=== PATIENT | female | born 1950 | race Caucasian/White ===

== ENCOUNTER 2022-05-03 08:07 | Observation (INO) ==
--- NOTE | 2022-04-22 09:06 | PAT Medication Instructions ---
Medication Instructions Date of Service April 22, 2022 Home Medications levothyroxine 88 mcg tablet (Synthroid) 88 mcg PO QAM lisinopril 20 mg tablet 20 mg PO HS rosuvastatin 10 mg tablet (Crestor) 10 mg PO HS Collagen Powder 1 dose PO QAM STOP taking 2 weeks before surgery (or as soon as possible if surgery is within 2 weeks) Collagen Powder 1 dose PO QAM Take morning of surgery With a small sip of water, OTHERWISE NOTHING TO EAT OR DRINK AFTER MIDNIGHT: levothyroxine 88 mcg tablet (Synthroid) 88 mcg PO QAM Take evening before surgery lisinopril 20 mg tablet 20 mg PO HS rosuvastatin 10 mg tablet (Crestor) 10 mg PO HS Other Notes If you have any questions please call us at [phone] or [phone] or [phone] or [phone]
--- NOTE | 2022-04-23 14:26 | Anesthesiology Consultation ---
Date of Service April 23, 2022 Assessment & Plan (1) Encounter for pre-operative examination: - COVID screening: Per assessment on 04/23: No known COVID-19 positive contacts or current COVID-19 related symptoms. Travel screen negative. Patient vaccinated. At surgeon discretion if preop Covid testing being done. - Outpatient joint assessment: Pt currently scheduled for inpatient pathway. If surgeon requests review for outpatient joint pathway, patient is not recommended candidate for outpatient joint program from anesthesia standpoint. - Cardiology office visit (02/11/22): "Patient presents today on referral for evaluation of ongoing sensation of palpitations.. Discussed atrial ectopy and arrhythmias in detail.. Noted relatively benign history of atrial ectopy with indications for symptom relief treatment only.. Would reduce thyroid replacement 88 mcg p.o. q. day with prescription provided.. Recent electrolytes and magnesium normal.. Discussed potential use of lowdose betablocker to aid in symptoms if persistent after adjustments in therapies.. Also discussed occult SVT observed on event monitor. Noted with methods of treatment if sustained events occur" > Follow-up 6 months recommended. Chart Review Chart Review: Acceptable Risk for Surgery and Patient seen in Pre Admission Testing Teaching & Discussion Pre-Anesthesia Teaching/Discussion Notes: Instructed NPO after midnight before surgery,except medications with 15 cc of water. Medication instructions provided according to the PAT guidelines. History Surgery Operation Date: 04/30/22 10:40 Proposed Procedures p Right Total Knee Arthroplasty - Robert Pina MD Height/Weight Height: 5 ft 1 in Weight: 129.3 kg Allergies Allergy/AdvReac Type Severity Reaction Status Date / Time Iodinated Contrast Media Allergy Severe Diffuse Verified 04/23/22 14:49 hives morphine AdvReac Intermediate N/V Verified 04/23/22 14:34 pravastatin AdvReac Leg pain Verified 04/23/22 14:49 (per [facility] records) Medications Home Medications Medication Instructions Recorded Confirmed Last Taken levothyroxine 88 mcg tablet 88 mcg PO QAM 04/11/22 04/18/22 Unknown (Synthroid) lisinopril 20 mg tablet 20 mg PO HS 04/11/22 04/18/22 Unknown rosuvastatin 10 mg tablet (Crestor) 10 mg PO HS 04/11/22 04/18/22 Unknown Collagen Powder 1 dose PO QAM 04/18/22 04/18/22 Unknown 3-in-1 Commode #1 ea 04/22/22 Unknown Past Medical History Medical History CKD (chronic kidney disease) Stage III Degenerative arthritis of knee, bilateral High cholesterol History of COVID-19 11/17/21 > symptoms resolved History of depression History of kidney stones Hypertension Hypothyroidism Morbid obesity Palpitations Per cardiology visit 01/2022, "Pattern consistent with sensed atrial ectopy with moderate to frequent atrial ectopy observed on event monitor, and on EKG.. Also discussed occult SVT observed on event monitor. Noted with methods of treatment if sustained events occur" - recommended reduction in thyroid replacement therapy, t/c beta gerry if persistent symptoms Prediabetes Exercise / Class Metabolic Activity III < 4 Walking/Shop/Light housework (one FS (no CP, + SOB)) Past Family History Family History Other Diabetes Heart disease No family history of adverse response to anesthesia Stroke Past Surgical History Surgical History H/O tubal ligation History of dilatation and curettage History of repair of rotator cuff Right History of tooth extraction Past Anesthesia History No Hx of Anesthesia Complications and No Family Hx of Anesthesia Complications History of PONV No Hx of PONV and No Hx of Motion Sickness Social History Smoking Status: Former smoker tobacco type: cigarettes Do You Dip or Chew Tobacco: No Smoking End Date: Quit around age 32 Hx Alcohol Use: Yes alcohol intake frequency: holidays/special occasions only Hx Substance Use: No substance use type: does not use Review of Systems Hx palpitations- controlled. Patient denies chest pain, shortness of breath, fever, chills, cough, wheezing. Physical Exam Vital Signs VITALS BP 112/66 P 70 TEMP 98.9 SP02 96%RA RESP 18 PHYSICAL Full cervical extension range of motion. Full TMJ range of motion. TMD 3 finger breaths Mallampati Score 1 Dentition: intact, + crown Lungs: clear throughout to auscultation Cardiac: regular rate and rhythm, no murmurs noted Spine: normal Carotid arteries: negative bruit Extremities: no edema Lab Results Anesthesia Preop Results Results Anesthesia Widget: WBC 5.88 K/ul (4.8-10.8) 04/23/22 Hgb 12.6 g/dl (12.0-16.0) 04/23/22 Hct 38.0 % (34.1-44.9) 04/23/22 Plt 310 K/uL (130-400) 04/23/22 Na 142 mmol/L (136-145) 04/23/22 K 4.1 mmol/L (3.5-5.1) 04/23/22 Cl 109 mmol/L (98-107) H 04/23/22 CO2 29 mmol/L (21-32) 04/23/22 BUN 25 mg/dl (6-23) H 04/23/22 Creat 1.09 mg/dl (0.6-1.2) 04/23/22 Glucose Level 141 mg/dl (70-99(Fasting)) H 04/23/22 PT 10.7 Seconds (9.0-12.0) 04/23/22 PTT 24.8 Seconds (21.0-31.0) 04/23/22 INR 1.0 (0.9-1.1) 04/23/22 Blood Type A Positive 04/23/22 Antibody Screen NEGATIVE 04/23/22 Testing Electrocardiogram Date: 01/28/22 SR and PSVCs at 79bpm. Possible LAE. RSR' or QR pattern in suggests RVCD. TWI less evident in anterior leads compared to 11/30/18 per commissioned security officer review- Echo done 02/08/19. Chest X-Ray Date: 04/23/22 Findings: + NAD Echocardiogram Date: 02/18/19 LVEF 60-64%. Mildly increased concentric LV wall thickness. No regional motion abnormality. Grade 1 diastolic dysfunction. Mild AV sclerosis. COVID-19 Risk Screen Screening Information COVID-19 Screen Date: 04/23/22 Exposure 21 Days Family/Household +COVID Last 21 Days: No Exposure 10 Days Any COVID Exposure Last 10 Days: No Symptoms Last 10 Days Experienced COVID Sx Last 10 Days: No + COVID 0-90 Days COVID + in Last 0-90 Days: No
[~2022-05-03 08:07] MED LIST: ACETAMINOPHEN 500 MG TAB PO SCH; BUPIVACAINE 0.5 % 5 MG/1 ML PF 10ML VIAL ONE; BUPIVACAINE LIPOSOME/PF 266 MG, BUPIVACAINE/EPINEPHRINE 50 ML, SODIUM CHLORIDE 0.9% 30 ... INFIL SCH; CeleBREX 200 MG CAP PO SCH; EPINEPHrine INJ 1 MG/ML AMP ONE; FAMOTIDINE 20 MG TAB PO SCH; LR 15ML/HR IV SCH; LR 500ML BOLUS, THEN 15ML/HR IV SCH; LR 60ML/HR IV SCH; METOCLOPRAMIDE HCL 10 MG TABLET PO SCH; ROPIVACAINE 0.5% 5 MG/ML 30 ML VIAL ONE; Scopolamine 1 MG TDSY TD SCH; Scopolamine CHECK PATCH PLACEMENT SCH; TRANEXAMIC ACID 1,000 MG **IV Intra-op IV SCH; ceFAZolin 2000MG 2,000 MG/15 ML SYR IV SCH
--- NOTE | 2022-05-03 08:41 | History & Physical Bridge Note ---
Date of Service May 03, 2022 History & Physical Bridge Note I have examined the patient, reviewed the History & Physical and in the interval since the performance of the History & Physical I have noted the following changes of clinical significance: no changes noted
[2022-05-03] MEDS ORDERED: KETAMINE 50 MG/5 ML SYRINGE ONE (09:33)
[2022-05-03] MEDS ORDERED: MIDAZOLAM HCL 1 MG/ML 2ML VIAL ONE (09:33)
[2022-05-03] MEDS ORDERED: PROPOFOL IV EMULSION 10 MG/ML 20 ML VIAL IV ONE ×2 (09:34→12:11)
[2022-05-03] MEDS ORDERED: GLYCOPYRROLATE 0.2 MG/ML VIAL ONE (09:34)
[2022-05-03] MEDS ORDERED: LIDOCAINE 2% MPF LOCAL 5 ML VIAL INFIL ONE (09:34)
[2022-05-03] MEDS ORDERED: ONDANSETRON INJ 2 MG/ML 2 ML VIAL ONE (09:34)
[2022-05-03] MEDS ORDERED: fentaNYL citrate 100 MCG/2 ML VIAL ONE (10:09)
[2022-05-03] MEDS ORDERED: BUPIVACAINE/EPINEPHRINE 0.25% 1:200,000 30 ML VIAL ONE (10:38)
[2022-05-03] MEDS ORDERED: SODIUM CHLORIDE 0.9% PF 50 ML VIAL ONE (10:38)
[2022-05-03] MEDS ORDERED: BUPIVACAINE LIPOSOME 1.3% 266 MG/20 ML VIAL ONE (10:40)
[2022-05-03] MEDS ORDERED: SODIUM CHLORIDE 0.9% INJ 10 ML VIAL ONE (10:58)
[2022-05-03] MEDS ORDERED: PHENYLEPHRINE HCL 10 MG/ML VIAL ONE (10:58)
[2022-05-03] MEDS ORDERED: ePHEDrine sulfate 50 MG/ML AMP ONE (10:58)
[2022-05-03] MEDS ORDERED: ATROPINE SULFATE 0.1 MG/ML 10ML SYR IV PRN (12:38)
[2022-05-03] MEDS ORDERED: ePHEDrine sulfate 50 MG/ML AMP IV PRN (12:38)
--- NOTE | 2022-05-03 12:53 | Operative Report ---
PG Post Operative Report Pre & Post Diagnosis Operation Date: 04/30/22 10:40 <No data on this case meets the specified criteria> Operation Date: 05/03/22 10:40 Pre-Op Diagnosis: Right knee degenerative joint disease. Post-Op Diagnosis: Right knee degenerative joint disease. I identified the patient and participated in the time-out.: Yes Procedure Operation Date: 04/30/22 10:40 <No data on this case meets the specified criteria> Operation Date: 05/03/22 10:40 Actual Procedures p Right Total Knee Arthroplasty(Right) - Robert Pina MD Surgeon Robert Pina MD Casting Machine Set Up Operator Rambo Diaz PA-C Estimated Blood Loss 50 Findings Consistent with Post-Op Diagnosis Operative findings real advanced right knee tricompartment DJD. She had extensive grade 4 [id number] disease in all 3 compartments. She had chronic ACL deficiency. Osteophytes in all 3 compartments. Very stiff knee preoperatively. Fluids 1300 cc Specimens Right knee sent for pathology Drains None Anesthesia Type Spinal MAC Complications none Disposition Accompanied Patient To Recovery: No Indications Patient is a 71-year-old female with underlying morbid obesity with a BMI of 53 whose had a long history of bilateral knee pain discomfort. She been through extensive conservative treatment became less successful over time. Pain is become debilitating limiting her activities. She elected proceed with right total knee arthroplasty. Description of Procedure Operative implants consist of: 1 Biomet Vanguard size 67.5 right posterior stabilized femoral component. 2. Biomet size 67 tibial tray. 3. 10 mm posterior stabilized polyethylene insert. 4. 28 x 8 all Paller patella. The patient was taken the operating, identified, placed on the operating table supine position protectors were properly padded. IV antibiotics tried by aneness thesia team. Spinal anesthetic been implemented holding area along with an abductor canal block. Rosas catheter was placed in a sterile fashion. Right thigh high tourniquet was placed in the right lower extremities then prepped and draped in usual sterile fashion. The right leg was elevated exsanguinated with use of an Esmarch in terms playset 300 mmHg. An anterior approach to the right knee was then performed to longitudinal incision centered over the patella. Sharp dissection Through subcutaneous tissue down the extensor mechanism. A medial parapatellar arthrotomy incision was made. Some subperiosteal dissection was carried out medially but the fat pad was dissected from Neath patella tendon. Lateral patellofemoral ligament was released. Patella subluxated laterally and the knee was flexed. The osteophytes were taken off distal femur. The ACL was absent. The PCL was released from distal femur. I attempted to subluxate the tibia anteriorly but was difficult to do and we could not get it out enough to cut the tibia. Therefore elected to cut the distal femur first. Distal femur stem with a sharp drill. Intramedullary canal was suction. Right 5 degree valgus cutting guide was placed. Distal femoral cutting block was pinned in place. Distal femoral cut was made to take an additional 3 mm bone off distal femur. This gave us enough room to subluxated tibia anteriorly. External tibial alignment jig was then placed in the interface the tibia and adjusted 14 mm medially. Proximal tibial cut was made removed by millimeter bone from most deficient aspect medial tibial plateau. Some osteophytes were taken off medial and posterior medially. Tibia sized to size 67. Attention drawn back to the femur. The femur was then sized to a size 67.5. Downsized this just slightly. The AP cutting block was pinned parallel to the epicondylar axis which was 3 degrees of external rotation. Anterior cut, anterior chamfer, posterior cut, posterior chamfer cuts were made. The box cutting guide was placed in just slight lateral and the box cut was made. The knee was flexed. The remnants of the medial and lateral menisci were excised. The osteophytes taken off the posterior aspect the femur. A trial femoral component was placed. Tibial tray was pinned in maximum external rotation and the drill and stem punch used to create defect in proximal tibia for the tibial tray. The knee was then trialed and the 10 mm insert fit most appropriately. Attention drawn the patella. The patella was cleaned of all soft tissues. Patella thickness measured 21 mm in thickness cut down to 13. Was sized to a size 28 patella. The lug holes were drilled for the 28 patella. The lateral osteophyte was removed. Patella button was placed. Knee was taken through range of motion patella tracked nicely with no thumbs test. Attention drawn to place the permanent components. Nupathe all trial components were removed. Bone plug was placed in the distal femur limit blood loss. Double batch Palacos G cement was mixed. A BiomPubCoderguard size 67.5 right posterior stabilized femoral component, a size 67 tibial tray, 10 mm posterior stabilized polyethylene insert, and a 28 x 8 all Paller patella then cemented in place. Knee was brought out in full extension total cement hardened. Final cement check was then performed. Pericapsular tissues were injected with total of 100 cc of combination of 23 of Exparel, 30 cc normal saline, 50 cc of quarter percent Marcaine with epinephrine. Patient did receive 1 g tranexamic acid. The tourniquet was then let down for final turn time of 63 minutes. Hemostasis assured use electrocautery. Extensor mechanism closed with combination 1 PDS suture #1 Vicryl suture in [id number] fashion. Extensor mechanism checked found to be intact the subcutaneous tissue then closed with 2 Dexon suture in a buried interrupted fashion skin was closed skin charlie. Leg was then cleaned and dried and sterile dressed with Xeroform, 4 x 4's, sterile cast padding, Roman bandage were applied. Patient then transferred to the recovery room in stable condition. Patient tolerated procedure well and there were no complications. Rambo Diaz, my physician assistant financial accountant, was present for the entire procedure. His assistance was essential and required for appropriate patient positioning, prepping and draping, surgical exposure, performing the technical details of the operation, placement the implants, closure of the wound, and placement of the sterile bandage. I attest to the content of the Intraoperative Record and any orders documented therein. Any exceptions are noted below.
[2022-05-03] MEDS ORDERED: HYDROmorphone INJ 1 MG/ML SYRINGE ONE ×2 (13:00→13:33)
--- NOTE | 2022-05-03 13:32 | XRay Report ---
XR knee RT 1 or 2V routine CLINICAL HISTORY: Surgical Post Op COMPARISON: Knee radiographs April 11, 2022. FINDINGS: Alignment of the total right knee arthroplasty is anatomic. No periprosthetic fracture or unexpected radiopaque foreign body. There are skin charlie. IMPRESSION: Expected findings following total right knee arthroplasty. ACT 112: Negative or not required by law. Electronically signed by: Huy Calhoun M.D. 05/03/2022 1:31 PM
--- NOTE | 2022-05-03 14:18 | Anesthesiology Progress Note ---
Date of Service May 03, 2022 Anesthesia Post Procedure Vital Signs Vital Signs: Temp Pulse Resp BP Pulse Ox O2 Del Method O2 Flow Rate 05/03/22 14:14 36.4 C L 89 18 133/66 94 Room Air 05/03/22 13:35 36.8 C 99 H 21 169/88 H 95 Room Air 05/03/22 13:25 36.8 C 100 H 19 151/87 H 95 Nasal Cannula 2 05/03/22 13:15 104 H 23 165/81 H 95 Room Air 05/03/22 13:05 105 H 17 171/77 H 97 Nasal Cannula 2 05/03/22 13:45 36.8 C 101 H 17 148/88 H 94 Room Air 05/03/22 12:55 111 H 14 144/79 H 94 Nasal Cannula 3 05/03/22 12:48 36.5 C 96 H 16 120/57 L 98 Nasal Cannula 4 05/03/22 08:34 36.9 C 84 20 132/85 95 Room Air Pain Intensity Right Knee: Pain Intensity: 2 Transfer of Care Handoff Completed per policy Notes Mental Status: alert / awake / arousable Patient Amnestic to Procedure: Yes Nausea / Vomiting: adequately controlled Pain: adequately controlled Airway Patency, RR, SpO2: stable & adequate BP & HR: stable & adequate Hydration State: stable & adequate Neuraxial Anesthesia: was administered and sensory block is resolving Anesthetic Complications: no major complications apparent
[2022-05-03] MEDS ORDERED: ONDANSETRON INJ 2 MG/ML 2 ML VIAL IV PRN (14:35)
[2022-05-03] MEDS ORDERED: bisacodyL 10 MG SUPP PR PRN (14:35)
[2022-05-03] MEDS ORDERED: METOCLOPRAMIDE HCL INJ 5 MG/ML 2 ML VIAL IV PRN (14:35)
[2022-05-03] MEDS ORDERED: ALUMINUM/MAGNESIUM SUSP 30 ML UDC PO PRN (14:35)
[2022-05-03] MEDS ORDERED: MAGNESIUM HYDROXIDE SUSP 30 ML UDC PO PRN (14:35)
[2022-05-03] MEDS ORDERED: HYDROmorphone INJ 1 MG/ML SYRINGE IV PRN (14:35)
[2022-05-03] MEDS ORDERED: NALOXONE HCL 0.4 MG/1 ML VIAL/CARP IV PRN (14:35)
[2022-05-03] MEDS: SODIUM CHLORIDE 0.9% 1000ML 1,000 ML IV SCH (15:31)
[2022-05-03] MEDS: ACETAMINOPHEN 500 MG TAB PO SCH ×2 (15:35→23:09)
[2022-05-03] MEDS: KETOROLAC TROMETHAMINE 15 MG/ML VIAL IV SCH ×2 (15:36→20:00)
[2022-05-03] MEDS: Scopolamine CHECK PATCH PLACEMENT SCH ×2 (15:38→23:09)
[2022-05-03] MEDS: ASCORBIC ACID 500 MG TAB PO SCH (16:56)
[2022-05-03] MEDS ORDERED: TRANEXAMIC ACID / 0.7% NACL 1,000 MG/100 ML BAG IV SCH (18:45)
[2022-05-03] MEDS: oxyCODONE HCL IR 5 MG TAB (IMMEDIATE RELEASE) PO PRN (19:13)
[2022-05-03] MEDS: ceFAZolin 2000MG 2,000 MG/15 ML SYR IV SCH (20:00)
[2022-05-03] MEDS: ASPIRIN 81 MG ECTAB PO SCH (20:01)
[2022-05-03] MEDS: DOCUSATE SODIUM 100 MG CAP PO SCH (20:01)
[2022-05-03] MEDS ORDERED: SENNA 8.6 MG TAB PO SCH (21:00)
[2022-05-03] MEDS ORDERED: ROSUVASTATIN CALCIUM 10 MG TAB PO SCH (21:00)
[2022-05-03] MEDS ORDERED: lisinopril 20 MG TAB PO SCH (21:00)
[2022-05-04] MEDS: SODIUM CHLORIDE 0.9% 1000ML 1,000 ML IV SCH (01:18)
[2022-05-04] MEDS: oxyCODONE HCL IR 5 MG TAB (IMMEDIATE RELEASE) PO PRN ×2 (02:11→11:05)
[2022-05-04] MEDS: ceFAZolin 2000MG 2,000 MG/15 ML SYR IV SCH (02:11)
[2022-05-04] MEDS: KETOROLAC TROMETHAMINE 15 MG/ML VIAL IV SCH ×2 (02:12→09:15)
[2022-05-04] MEDS: ACETAMINOPHEN 500 MG TAB PO SCH (05:31)
[2022-05-04 06:28] LABS: Hematocrit (blood only) 32.3 % (34.1-44.9); Hemoglobin 10.6 g/dl (12.0-16.0); Mean Corpuscular Hemoglobin 30.2 pg (25.0-34.0); Mean Corpuscular Hgb Conc 32.8 g/dL (32.0-36.0); Mean Platelet Volume 9.5 fL (9.4-12.3); Platelet Count 267 K/uL (130-400); RDW Coefficient of Variation 13.2 % (11.5-14.5); RDW Standard Deviation 43.9 fL (36.4-46.3); Red Blood Count 3.51 M/uL (3.93-5.22); White Blood Count 7.63 K/ul (4.8-10.8)
[2022-05-04 06:53] LABS: BUN Creatinine Ratio 20.5 (10-20); Calcium 8.8 mg/dl (8.5-10.1); Creatinine Clr Calc Pharmacy 52.6 ml/min; Est GFR (African American) 49.9 ml/min; Potassium 3.9 mmol/L (3.5-5.1)
[2022-05-04] MEDS ORDERED: dexAMETHasone 10 MG in SYRINGE 0 ML IV SCH (08:00)
--- NOTE | 2022-05-04 08:46 | Progress Notes ---
DATE OF SERVICE: 05/04/2022 SUBJECTIVE: A 71-year-old female postop day 1 from right knee replacement. She is doing quite well. Pain has been very well controlled overnight. Had a good night. She has been up and out of bed to the bathroom, doing well. She is hoping to go home. No chest pain or shortness of breath. Not fee ling dizzy or lightheaded. OBJECTIVE: VITAL SIGNS: Temperature is 37.0. Vital signs stable. PHYSICAL EXAMINATION: GENERAL: Shows a pleasant middle-aged female. She is lying in bed and looks comfortable. LUNGS: Clear to auscultation. HEART: Regular rate and rhythm. ABDOMEN: Soft, nontender, nondistended. EXTREMITIES: Grossly neurovascularly intact except as follows. Examination of the right leg reveals the dressing to be clean, dry, and intact. Leg is well aligned. She can dorsiflex and plantarflex her foot appropriately. She is neurologically intact. LABORATORY DATA: Hemoglobin 10.6. Hematocrit 32.3. Electrolytes are stable. Creatinine just sligh tly on the high side, which is around baseline. ASSESSMENT: A 71-year-old white female postop day 1 from a right knee replacement, doing pretty well . Pain is controlled. She is neurologically intact. She is hoping to go home. PLAN: 1. DVT prophylaxis to include thigh-high TEDs, SCDs, and aspirin twice a day. 2. PT/OT, weightbear as tolerated. Right total knee protocol. 3. Pain control, doing okay with current pain regimen. 4. Elevated creatinine. Likely due to volume status. We will encourage p.o. intake. 5. Disposition: Plan to discharge to home with some home health if she does okay in therapy. Job ID: [id number]
[2022-05-04] MEDS ORDERED: COLLAGEN PO SCH (09:00)
[2022-05-04] MEDS ORDERED: DOCUSATE SODIUM/SENNA 50/8.6MG TAB PO SCH (09:00)
[2022-05-04] MEDS ORDERED: LEVOTHYROXINE SODIUM 88 MCG TABLET PO SCH (09:00)
[2022-05-04] MEDS ORDERED: MULTIVITAMIN TAB PO SCH (09:00)
[2022-05-04] MEDS: Scopolamine CHECK PATCH PLACEMENT SCH (09:15)
[2022-05-04] MEDS: ASPIRIN 81 MG ECTAB PO SCH (09:16)
[2022-05-04] MEDS: DOCUSATE SODIUM 100 MG CAP PO SCH (09:16)
[2022-05-04] MEDS: ASCORBIC ACID 500 MG TAB PO SCH (09:16)
== END 2022-05-04 11:48 | disposition home health service (06) ==
LOC: ASU 08:07 → 3N 08:07
DX: Z68.43 Body mass index [BMI] 50.0-59.9, adult; Z79.890 Hormone replacement therapy; Z87.891 Personal history of nicotine dependence; Z79.899 Other long term (current) drug therapy; Z91.041 Radiographic dye allergy status; Z86.16 Personal history of COVID-19; M17.11 Unilateral primary osteoarthritis, right knee; E66.01 Morbid (severe) obesity due to excess calories; Z79.82 Long term (current) use of aspirin

== ENCOUNTER 2022-08-16 10:12 | Observation (INO) ==
--- NOTE | 2022-08-10 09:50 | History and Physical Report ---
CHIEF COMPLAINT: Left knee pain. HISTORY OF PRESENT ILLNESS: The patient is a 72-year-old female who presents for surgical treatment of her left knee. She has a long history of knee problems that has gradually gotten worse over time. She had a right knee replaced about 3 months ago and has done well from this. She continues to be bothered by left knee pain and discomfort. It has been gradually increasing over the past 10 years. She has been treated extensively with injections and medicines, which became less successful over ti me. She is happy with the right knee and would like to have her left knee fixed as well. PAST MEDICAL HISTORY: Significant for: 1. Heart palpitations now on thyroid medicine and resolved. 2. Hypothyroidism. 3. Elevated cholesterol. 4. Hypertension. 5. Unspecified kidney disease. 6. Obesity with a BMI of 53. PAST SURGICAL HISTORY: Includes: 1. Shoulder surgery. 2. Tubal ligation. 3. Right total knee replacement done on 05/03/2022. ALLERGIES: IVP DYE. CURRENT MEDICATIONS: 1. Lisinopril. 2. Crestor. 3. Synthroid. 4. Supplements. SOCIAL HISTORY: A 72-year-old female. She is . Lives alone. Has a daughter who can help i n her care. Rare alcohol intake. Does not smoke. FAMILY HISTORY: Heart disease, diabetes, brain cancer, throat cancer. REVIEW OF SYSTEMS: Negative for diabetes. No chest pain or shortness of breath. Does have a histor y of heart palpitations in the past, but seems to be resolved now. She is on thyroid replacement. PHYSICAL EXAMINATION: GENERAL: Pleasant middle-aged female. Looks to be in reasonably good health. HEENT: Benign. NECK: Supple. No lymphadenopathy. LUNGS: Clear to auscultation. HEART: Has a regular rate and rhythm. ABDOMEN: Soft, nontender, nondistended. EXTREMITIES: Grossly neurovascularly intact except as follows. Examination of the right knee reveals a well-healed incision. Fairly mild swelling. Range of motion is 0-120. Good straight leg raise. No instability. Examination of the left knee reveals slight va jalyn alignment to her knee. Moderate to large soft tissue envelope. Range of motion is 10 degrees sh ort of full extension to about 110 degrees of flexion. No instability. No pain with hip motion. X-RAYS: X-rays of the left knee are reviewed. It shows advanced left knee DJD. She has got tricomp artment disease with tibial femoral subluxation. ASSESSMENT: A 72-year-old female 3 months out from a right knee replacement with advanced left knee tricompartment degenerative joint disease. She has failed conservative treatment and would like to h ave her left knee replaced. PLAN: We will take her to the operating room and do left total knee replacement. Risks and benefits of this procedure were explained to the patient and include but not limited to DVT, PE, , infec tion, neurological injury, vascular injury, bleeding problem, pain, limited range of motion, stiffnes s, failure to relieve her symptoms, incomplete relief of symptoms, etc. The patient understands and desires to proceed. Informed consent was obtained. As far as discharge plans, she is planning to be discharged to home using [facility] progr [facility]. She does live by herself. I believe her daughter has assisted in her care in the past. Job ID: [id number]
--- NOTE | 2022-08-12 12:04 | Anesthesiology Consultation ---
Date of Service August 12, 2022 Assessment & Plan (1) Encounter for pre-operative examination: Plan - s/p R TKA 05/03/22 SAB L3-L4 2 attempts PNB. - cardiology 02/11/22 [facility]: "...evaluation of ongoing sensation of palpitations. Patient notes sensation of heart fluttering in her chest without specific relationship to activities or position. No sustained tachy palpitations no associated dizziness lightheadedness syncope or near syncope...Discussed atrial ectopy and arrhythmias in detail. Noted relatively benign history of atrial ectopy with indications for symptom relief treatment only. Would reduce thyroid replacement 88 mcg p.o. q.day with prescription provided. Recent electrolytes and magnesium normal. Discussed potential use of low-dose beta-gerry to aid in symptoms if persist after adjustments in therapies. Also discussed occult SVT observed on event monitor. Noted with methods of treatment if sustained events occur..." - Outpatient joint assessment: Patient is currently scheduled for inpatient pathway. If re-evaluated pending system levels during current pandemic/surgeon requests outpatient pathway, patient is not acceptable candidate for outpatient joint program from anesthesia standpoint. - COVID screening: Per mission assessment specialist on 08/12/2022: Travel screen negative, no known COVID-19 positive contacts or current COVID-19 related symptoms in past 2 weeks. To surgeon's discretion if preop COVID testing is needed. Chart Review Chart Review: Acceptable Risk for Surgery and Patient NOT seen in Pre Admission Testing History Surgery Operation Date: 08/16/22 07:00 Proposed Procedures p Left Total Knee Arthroplasty - Robert Pina MD Height/Weight Height: 5 ft 1 in Weight: 128.367 kg Allergies Allergy/AdvReac Type Severity Reaction Status Date / Time Iodinated Contrast Media Allergy Severe Diffuse Verified 08/12/22 11:23 hives morphine AdvReac Intermediate N/V Verified 08/12/22 11:23 pravastatin AdvReac Leg pain Verified 08/12/22 11:23 (per [facility] records) Medications Home Medications Medication Instructions Recorded Confirmed Last Taken levothyroxine 88 mcg tablet 88 mcg PO QAM 04/11/22 08/12/22 05/02/22 05:30 (Synthroid) lisinopril 20 mg tablet 20 mg PO HS 04/11/22 08/12/22 05/01/22 21:00 rosuvastatin 10 mg tablet (Crestor) 10 mg PO HS 04/11/22 08/12/22 05/01/22 21:00 Collagen Powder 1 dose PO QAM 04/18/22 08/12/22 04/29/22 21:00 3-in-1 Commode #1 ea 04/22/22 Unknown acetaminophen 500 mg capsule 1,000 mg PO TID Pain 30 days #180 04/28/22 08/12/22 Unknown caps ketorolac 10 mg tablet 10 mg PO Q8H Pain 5 days #15 tabs 04/28/22 08/12/22 Unknown ondansetron HCl 4 mg tablet 4 mg PO Q6 PRN nausea #20 tabs 04/28/22 08/12/22 Unknown oxycodone 5 mg tablet 5 - 10 mg PO Q6 PRN pain #40 tabs 04/28/22 08/12/22 Unknown sennosides 8.6 mg-docusate sodium 1 tab-cap PO DAILY #14 tabs 04/28/22 08/12/22 Unknown 50 mg tablet (Senokot-S) Amino Acid Synergy 3 tab PO QAM 08/12/22 08/12/22 Unknown Past Medical History Medical History (Updated 08/12/22 @ 11:57 by Brittaney Jaime PA-C) CKD (chronic kidney disease) Stage III Degenerative arthritis of knee, bilateral High cholesterol History of COVID-19 11/17/21 > symptoms resolved History of depression History of kidney stones Hypertension Hypothyroidism Morbid obesity Palpitations Per cardiology visit 01/2022, "Pattern consistent with sensed atrial ectopy with moderate to frequent atrial ectopy observed on event monitor, and on EKG.. Also discussed occult SVT observed on event monitor. Noted with methods of treatment if sustained events occur" - recommended reduction in thyroid replacement therapy, t/c beta gerry if persistent symptoms Prediabetes Past Family History Family History Other Diabetes Heart disease No family history of adverse response to anesthesia Stroke Past Surgical History Surgical History H/O tubal ligation History of dilatation and curettage History of repair of rotator cuff Right History of tooth extraction History of total right knee replacement Social History Smoking Status: Former smoker tobacco type: cigarettes Do You Dip or Chew Tobacco: No Smoking End Date: age 32 Hx Alcohol Use: Yes Alcohol type: wine alcohol intake frequency: holidays/special occasions only Hx Substance Use: No substance use type: does not use Lab Results Anesthesia Preop Results Results Anesthesia Widget: WBC 5.95 K/ul (4.8-10.8) 07/31/22 Hgb 13.3 g/dl (12.0-16.0) 07/31/22 Hct 40.6 % (37.0-47.0) 07/31/22 Plt 339 K/uL (130-400) 07/31/22 Na 141 mmol/L (136-145) 07/31/22 K 4.3 mmol/L (3.5-5.1) 07/31/22 Cl 108 mmol/L (98-107) H 07/31/22 CO2 29 mmol/L (21-32) 07/31/22 BUN 26 mg/dl (6-23) H 07/31/22 Creat 1.07 mg/dl (0.6-1.2) 07/31/22 Glucose Level 107 mg/dl (70-99(Fasting)) H 07/31/22 PT 10.9 Seconds (9.0-12.0) 07/31/22 PTT 26.0 Seconds (21.0-31.0) 07/31/22 INR 1.0 (0.9-1.1) 07/31/22 Blood Type A Positive 07/31/22 Antibody Screen NEGATIVE 07/31/22 Testing Electrocardiogram Date: 01/28/22 Sinus rhythm premature supraventricular complexes, rate 79 bpm Possible LA enlargement RSR' or QR pattern in V1 suggests right ventricular conduction delay Chest X-Ray Date: 04/23/22 No lines and tubes are seen. The cardiomediastinal silhouette is normal. The lungs are clear. No evidence of pleural effusion or pneumothorax. IMPRESSION: No acute chest disease. Echocardiogram Date: 02/08/19 EF 60-64% Normal LV wall motion Grade I diastolic dysfunction Mild cLVH Mild aortic valve sclerosis
[~2022-08-16 10:12] MED LIST changes: -BUPIVACAINE LIPOSOME/PF 266 MG, BUPIVACAINE/EPINEPHRINE 50 ML, SODIUM CHLORIDE 0.9% 30 ... INFIL SCH; +BUPIVACAINE LIPOSOME/PF 266 MG, BUPIVACAINE/EPINEPHRINE 50 ML, SODIUM CHLORIDE 0.9% PF ... INFIL SCH; -EPINEPHrine INJ 1 MG/ML AMP ONE; -LR 15ML/HR IV SCH; -Scopolamine CHECK PATCH PLACEMENT SCH
--- NOTE | 2022-08-16 11:00 | History & Physical Bridge Note ---
Date of Service August 16, 2022 History & Physical Bridge Note I have examined the patient, reviewed the History & Physical and in the interval since the performance of the History & Physical I have noted the following changes of clinical significance: no changes noted
[2022-08-16] MEDS ORDERED: ONDANSETRON INJ 2 MG/ML 2 ML VIAL ONE (11:52)
[2022-08-16] MEDS ORDERED: PROPOFOL IV EMULSION 10 MG/ML 20 ML VIAL IV ONE (11:52)
[2022-08-16] MEDS ORDERED: LIDOCAINE 2% 20 MG/ML 5 ML SYR IV ONE (11:52)
[2022-08-16] MEDS ORDERED: fentaNYL citrate PF 100 MCG/2 ML VIAL ONE (11:53)
[2022-08-16] MEDS ORDERED: MIDAZOLAM HCL 1 MG/ML 2ML VIAL ONE ×2 (11:53→12:51)
[2022-08-16] MEDS ORDERED: FLUMAZENIL 0.1 MG/1 ML 10 ML VIAL IV PRN (12:28)
[2022-08-16] MEDS ORDERED: fentaNYL citrate PF 100 MCG/2 ML VIAL IV PRN ×2 (12:28→12:38)
[2022-08-16] MEDS ORDERED: ONDANSETRON INJ 2 MG/ML 2 ML VIAL IV PRN ×3 (12:28→16:22)
[2022-08-16] MEDS ORDERED: HYDROmorphone INJ 2 MG/ML SYR/VIAL IV PRN ×2 (12:28→12:38)
[2022-08-16] MEDS ORDERED: ePHEDrine sulfate 50 MG/ML AMP IV PRN (12:38)
[2022-08-16] MEDS ORDERED: ATROPINE SULFATE 0.1 MG/ML 10ML SYR IV PRN (12:38)
[2022-08-16] MEDS ORDERED: PROMETHAZINE HCL 12.5 MG in SODIUM CHLORIDE 0.9% 50 ML IV PRN (12:38)
[2022-08-16] MEDS ORDERED: BUPIVACAINE/EPINEPHRINE 0.25% 1:200,000 30 ML VIAL ONE (12:59)
[2022-08-16] MEDS ORDERED: BUPIVACAINE LIPOSOME 1.3% 266 MG/20 ML VIAL ONE (13:00)
[2022-08-16] MEDS ORDERED: SODIUM CHLORIDE 0.9% PF 50 ML VIAL ONE (13:01)
[2022-08-16] MEDS ORDERED: ePHEDrine sulfate 50 MG/ML AMP ONE (13:30)
[2022-08-16] MEDS ORDERED: DEXAMETHASONE SOD INJ 4 MG/ML VIAL ONE (14:38)
[2022-08-16] MEDS ORDERED: KETOROLAC 30 MG/ML VIAL ONE (14:38)
--- NOTE | 2022-08-16 15:26 | Operative Report ---
PG Post Operative Report Pre & Post Diagnosis Operation Date: 08/16/22 12:30 Pre-Op Diagnosis: Left Knee Advanced Degenerative Joint Disease Post-Op Diagnosis: Left Knee Advanced Degenerative Joint Disease I identified the patient and participated in the time-out.: Yes Procedure Operation Date: 08/16/22 12:30 Actual Procedures p Left Total Knee Arthroplasty(Left) - Robert Pina MD Surgeon Robert Pina MD Occupational Therapy Program Director Rambo Diaz PA-C Estimated Blood Loss 50 Findings Consistent with Post-Op Diagnosis Operative findings advanced left knee tricompartment DJD. She had grade 4 [id number] disease in all 3 compartments. She had about 10 to 15 degree flexion contracture and her knee only bent about 90 degrees. Very large soft tissue envelope and a very stiff knee. Specimens Left knee sent for pathology. Anesthesia Type Spinal MAC Complications none Disposition Accompanied Patient To Recovery: No Indications Patient is a 72-year-old morbidly obese female said a long history of bilateral knee pain discomfort is gradually gotten worse over time. Is very debilitated by her disease. She failed conservative care. She had a right knee replaced in May of last year and is done well from this. She continues to be limited by left knee pain and discomfort. She elected proceed with left total knee arthroplasty. Description of Procedure Operative implants consist of: 1 Biomet Vanguard size 65 left posterior stabilized femoral component. 2. Biomet size 71 tibial tray. 3. 10 mm posterior stabilized polyethylene insert. 4. 31 x 8 all poly patella. Patient was taken to the operating, identified, placed on the operating table supine position protectors were properly padded. IV antibiotics tried by anesthesia team. A spinal anesthetic and abductor canal block had provided in the holding area. Rosas catheter was placed in sterile fashion. Left thigh turn was then placed in the left lower extremities and prepped and draped in usu al sterile fashion. The left leg was elevated exsanguinated with use of an Esmarch in terms playset 3 mmHg. An anterior posterior left knee was then performed through a longitudinal incision centered over the patella. Sharp dissection was carried through subcutaneous tissue down the extensor mechanism. A medial parapatellar arthrotomy incision was made. Some subperiosteal dissection was carried out medially. The fat pad was resected from Neath patella tendon. Lateral patellofemoral ligament was released. Patella subluxated laterally and the knee was flexed. The osteophytes taken off distal femur. The ACL was absent. The PCL was released from distal femur the tibia subluxated anteriorly. The external tibial alignment jig was then placed the interface the tibia and adjusted 14 mm medially. Proximal tibial cut was made essentially flush with the most deficient aspect of the posterior medial tibial plateau. Some osteophytes were taken off medially. Tibia sized to a size 71. We tried to maximize coverage due to her severe size and osteopenia. Attention drawn the femur. The distal femur stem with a sharp drop with intramedullary canal was suction. A left 5 degree valgus cutting guide was placed. This femoral cutting block was pinned in place. Distal femoral cut was made to take an additional 3 mm bone off distal femur. The femur was then sized to a size 65. The the AP cutting block was pinned parallel to the epicondylar axis which was 5 degrees external rotation. The anterior cut, anterior chamfer, posterior cut, posterior chamfer cuts were made. The box cutting guide was placed in a just slightly lateral and the box cut was made. The knee was flexed. The remnants of the medial lateral menisci were excised. The osteophytes were taken off the posterior aspect the femur. A trial femoral component was placed. Tibial tray was pinned in maximum external rotation and the drill and stem punch used to create defect in proximal tibia for the tibial tray. Knee was then trialed and the 10 mm insert fit most appropriately. Attention drawn the patella. The patella was cleaned of all soft tissues. Patella thickness measured 22 mm in thickness and was cut down to 13. Was sized to a size 31 patella. The lug holes were drilled for 31 patella. Lateral osteophytes removed. Patella button was placed. Knee was taken through range of motion and the patella tracked nicely with no thumbs test. Attention drawn to place the permanent components. Nupathe all trial components were removed. Bone plug was placed in the distal femur limit blood loss. Double batch Palacos G cement was mixed. Biomet Vanguard size 65 left posterior stabilized femoral component, size 71 tibial tray, a 10 mm posterior stabilized polyethylene insert, and a 31 x 8 all Paller patella then cemented in place. New spreadout in full extension till cement hardened. Final cement check was then performed. The pericapsular tissues were injected with total 100 cc of combination of 20 cc of Exparel, 30 cc normal saline, 50 cc of quarter percent Marcaine with epinephrine. Patient did receive 1 g tranexamic acid. The tourniquet was let down for final tourniquet time of 66 minutes. Hemostasis assured use electrocautery. Extensor mechanism then closed with combination 1 PDS suture #1 Vicryl suture in a [id number] fashion. Extensor mechanism checked found to be intact with subcutaneous tissue then closed with 2 Dexon suture in a buried interrupted fashion skin was closed skin charlie. Leg was then cleaned and dried and sterile dressing was Xeroform, 4 fours, sterile cast padding, Roman bandage were applied. Patient then transferred to the recovery in stable condition. Patient tolerated procedure well and there were no complications. Rambo Diaz, my physician real estate legal assistant, was present for the entire procedure. His assistance was essential and required for appropriate patient positioning, prepping and draping, surgical exposure, performing the technical details of the operation, placement the implants, closure of the wound, and placement of the sterile bandage. I attest to the content of the Intraoperative Record and any orders documented therein. Any exceptions are noted below.
--- NOTE | 2022-08-16 15:38 | Anesthesiology Progress Note ---
Date of Service August 16, 2022 Anesthesia Post Procedure Vital Signs Vital Signs: Temp Pulse Resp BP Pulse Ox O2 Del Method O2 Flow Rate 08/16/22 15:30 77 12 109/48 L 100 Oxymask 11 08/16/22 15:20 36.2 C L 85 13 106/56 L 97 Oxymask 11 08/16/22 10:34 36.8 C 83 21 159/79 H 96 Room Air Transfer of Care Handoff Completed per policy Notes Mental Status: alert / awake / arousable and participated in evaluation Nausea / Vomiting: adequately controlled Pain: adequately controlled Airway Patency, RR, SpO2: stable & adequate BP & HR: stable & adequate Hydration State: stable & adequate Neuraxial Anesthesia: was administered and sensory block is resolving Anesthetic Complications: no major complications apparent and Pt Satisfied with anesthetic care
--- NOTE | 2022-08-16 15:56 | XRay Report ---
LEFT KNEE 2 VIEWS History: Left total knee arthroplasty. Degenerative arthritis. Postop. FINDINGS: The patient is status post a left total knee arthroplasty. The hardware is intact. No fract ure or dislocation. Skin charlie are in place. IMPRESSION: Left total knee arthroplasty. No evidence for hardware complication. ACT 112: Negative or not required by law. Electronically signed by: Flash Dale M.D. 08/16/2022 3:55 PM
[2022-08-16] MEDS ORDERED: NALOXONE HCL 0.4 MG/1 ML VIAL/CARP IV PRN (16:22)
[2022-08-16] MEDS ORDERED: MAGNESIUM HYDROXIDE SUSP 30 ML UDC PO PRN (16:22)
[2022-08-16] MEDS ORDERED: ALUMINUM/MAGNESIUM SUSP 30 ML UDC PO PRN (16:22)
[2022-08-16] MEDS ORDERED: oxyCODONE HCL IR 5 MG TAB (IMMEDIATE RELEASE) PO PRN (16:22)
[2022-08-16] MEDS ORDERED: METOCLOPRAMIDE HCL INJ 5 MG/ML 2 ML VIAL IV PRN (16:22)
[2022-08-16] MEDS ORDERED: HYDROmorphone INJ 0.5 MG/0.5 ML SYR IV PRN (16:22)
[2022-08-16] MEDS ORDERED: bisacodyL 10 MG SUPP PR PRN (16:22)
[2022-08-16] MEDS ORDERED: dexAMETHasone 10 MG in SYRINGE 0 ML IV SCH (16:22)
[2022-08-16] MEDS: Scopolamine CHECK PATCH PLACEMENT SCH ×2 (16:37→23:56)
[2022-08-16] MEDS: SODIUM CHLORIDE 0.9% 1000ML 1,000 ML IV SCH (17:19)
[2022-08-16] MEDS: KETOROLAC TROMETHAMINE 15 MG/ML VIAL IV SCH ×2 (17:19→21:47)
[2022-08-16] MEDS: ASCORBIC ACID 500 MG TAB PO SCH (17:53)
[2022-08-16] MEDS: oxyCODONE HCL IR 5 MG TAB (IMMEDIATE RELEASE) PO PRN (18:42)
[2022-08-16] MEDS ORDERED: DOCUSATE SODIUM/SENNA 50/8.6MG TAB PO SCH (21:00)
[2022-08-16] MEDS ORDERED: SENNA 8.6 MG TAB PO SCH (21:00)
[2022-08-16] MEDS ORDERED: ROSUVASTATIN CALCIUM 10 MG TAB PO SCH (21:00)
[2022-08-16] MEDS ORDERED: lisinopril 20 MG TAB PO SCH (21:00)
[2022-08-16] MEDS ORDERED: TRANEXAMIC ACID / 0.7% NACL 1,000 MG/100 ML BAG IV SCH (21:30)
[2022-08-16] MEDS: ceFAZolin 2000MG 2,000 MG/15 ML SYR IV SCH (21:46)
[2022-08-16] MEDS: ACETAMINOPHEN 500 MG TAB PO SCH (21:47)
[2022-08-16] MEDS: DOCUSATE SODIUM 100 MG CAP PO SCH (21:47)
[2022-08-16] MEDS: ASPIRIN 81 MG ECTAB PO SCH (21:47)
[2022-08-17] MEDS: oxyCODONE HCL IR 5 MG TAB (IMMEDIATE RELEASE) PO PRN ×2 (01:15→09:10)
[2022-08-17] MEDS: SODIUM CHLORIDE 0.9% 1000ML 1,000 ML IV SCH (03:40)
[2022-08-17] MEDS: ACETAMINOPHEN 500 MG TAB PO SCH (05:13)
[2022-08-17] MEDS: KETOROLAC TROMETHAMINE 15 MG/ML VIAL IV SCH ×2 (05:14→10:24)
[2022-08-17] MEDS: ceFAZolin 2000MG 2,000 MG/15 ML SYR IV SCH (05:14)
[2022-08-17 07:05] LABS: Hematocrit (blood only) 33.4 % (37.0-47.0); Mean Corpuscular Hemoglobin 30.1 pg (25.0-34.0); Mean Corpuscular Hgb Conc 32.9 g/dL (32.0-36.0); Mean Corpuscular Volume 91.3 fL (80.0-100.0); Mean Platelet Volume 9.3 fL (9.4-12.4); Platelet Count 264 K/uL (130-400); RDW Coefficient of Variation 12.7 % (11.5-14.5); RDW Standard Deviation 41.6 fL (36.4-46.3); Red Blood Count 3.66 M/uL (4.20-5.40); White Blood Count 11.21 K/ul (4.8-10.8)
[2022-08-17 07:28] VITALS: BP 116/54; PULSE 61; TEMP 97.9; O2SAT 94
[2022-08-17 07:28] LABS: BUN Creatinine Ratio 20.7 (10-20); Calcium 8.9 mg/dl (8.5-10.1); Creatinine Clr Calc Pharmacy 48.8 ml/min; Est GFR (Non-African American) 39.7 ml/min; Potassium 4.1 mmol/L (3.5-5.1)
[2022-08-17] MEDS: Scopolamine CHECK PATCH PLACEMENT SCH (07:40)
[2022-08-17] MEDS: ASCORBIC ACID 500 MG TAB PO SCH (07:41)
[2022-08-17] MEDS: DOCUSATE SODIUM 100 MG CAP PO SCH (08:05)
[2022-08-17] MEDS: ASPIRIN 81 MG ECTAB PO SCH (08:05)
--- NOTE | 2022-08-17 08:58 | Progress Notes ---
DATE OF SERVICE: 08/17/2022. SUBJECTIVE: A 72-year-old female postoperative day 1 from a left knee replacement. She is doing wel l. She has been up and around, getting to the bathroom. No chest pain or shortness of breath. Pain is controlled. OBJECTIVE: VITAL SIGNS: Temperature 36.6. Vital signs stable. GENERAL: Shows a pleasant middle-aged female. She has been walking around the room this morning. S he is sitting up in a bedside chair. LUNGS: Clear to auscultation. HEART: Regular rate and rhythm. ABDOMEN: Soft, nontender, nondistended. EXTREMITIES: Grossly neurovascularly intact except as follows: Examination of the left leg revealed this patient walks around almost independently. Her dressing is clean, dry and intact. Leg is well aligned. She can do a straight leg raise. NEUROLOGIC: She is neurologically intact. LABORATORY DATA: Hemoglobin 11.0. Hematocrit 33.4. Electrolytes are stable. ASSESSMENT: A 72-year-old female postoperative day 1 from a left knee replacement, doing well. Pain is controlled. She is neurologically intact. PLAN: 1. DVT prophylaxis includes thigh-high TEDs, SCDs, and aspirin twice a day. 2. PT/OT, weightbear as tolerated. Left total knee protocol. 3. Pain control, doing okay with current pain regimen. 4. Disposition: Plan to discharge to home with some home health if she does okay in therapy today. Job ID: [id number]
[2022-08-17] MEDS ORDERED: COLLAGEN PO SCH (09:00)
[2022-08-17] MEDS ORDERED: LEVOTHYROXINE SODIUM 88 MCG TABLET PO SCH (09:00)
[2022-08-17] MEDS ORDERED: AMINO ACID SYNERGY PO SCH (09:00)
[2022-08-17] MEDS ORDERED: DOCUSATE SODIUM/SENNA 50/8.6MG TAB PO SCH (09:00)
[2022-08-17] MEDS ORDERED: MULTIVITAMIN TAB PO SCH (09:00)
--- NOTE | 2022-08-22 06:38 | Discharge Summary ---
Date of Service August 22, 2022 Discharge Data Procedures Performed Operation Date: 08/16/22 12:30 Actual Procedures p Left Total Knee Arthroplasty(Left) - Robert Pina MD Hospital Course (1) Status post total left knee replacement: This is a 72 year old patient admitted on 08/16/22 and underwent total knee arthroplasty. She tolerated the procedure well and there were no complications. Transferred to the PACU post op and later to the orthopedic floor for further care. She was given ancef for antibiotic prophylaxis. She was also given WALLY stockings, SCDs, and aspirin for DVT prophylaxis. Hemoglobin, hematocrit, and vital signs were monitored during her hospital stay and remained stable. Did not require any blood transfusions. There were no complications during her hospital stay. By post op day #1 the patient was tolerating a regular diet, pain was reasonably controlled with oral pain medicine, and she was participating in physical therapy. On post op day #1 the patient was discharged home and set up with home health care. She was given printed discharge instructions including prescriptions for extra strength tylenol, aspirin, cefadroxil, ketorolac, zofran, oxycodone, and senokot. Continue physical therapy, weight bearing as tolerated. Continue WALLY stockings. Follow up approximately 2 weeks post op or sooner if there are problems or concerns. Coding Level of Care Code None Diagnoses Status post total left knee replacement Z96.652
== END 2022-08-17 12:44 | disposition home health service (06) ==
LOC: ASU 10:12 → 3W 10:12